=== PATIENT | female | born 1990 ===

== ENCOUNTER 2019-06-30 09:50 | Inpatient (IN) | payer OTHER ==
[~2019-06-30] VITALS: Ht 162.6 cm; Wt 69.9 kg
[2019-06-30] MEDS ORDERED: PRENATABS RX T1 EACH PO (11:40)
[2019-06-30] MEDS ORDERED: NASAL MIST126 ML (11:40)
== END 2019-07-05 13:43 | disposition home or self-care (01) | DRG 832 ==
LOC: LDR 09:50 → OB/GYN 07-01 12:58
PROVIDERS: ADMIT Obstetrics & Gynecology; ATTEND Obstetrics & Gynecology
PROC: 4A1HXFZ Monitoring of Products of Conception, Cardiac Rhythm, External Approach (ICD-10-PCS; principal; 2019-06-30)
PROC: BW40ZZZ Ultrasonography of Abdomen (ICD-10-PCS; 2019-06-30)
PROC: BT43ZZZ Ultrasonography of Bilateral Kidneys (ICD-10-PCS; 2019-07-04)
DX: O99.89 Other specified diseases and conditions complicating pregnancy, childbirth and the puerperium (principal); N13.39 Other hydronephrosis; Z3A.24 24 weeks gestation of pregnancy